=== PATIENT | male | born 1995 | race Caucasian/White ===

== ENCOUNTER 2022-11-21 18:56 | Emergency (ER) | payer BC ==
[2022-11-21 19:34] LABS: ESTIMATED GFR 120 mL/min (>60)
== END 2022-11-21 20:11 | disposition home or self-care (01) ==
LOC: FB.ED 18:56
DX: R07.81 Pleurodynia (principal); K64.4 Residual hemorrhoidal skin tags
CPT/HCPCS: 36415; 71045; 80053; 84484; 85025; 93005; 93010; 99283; 99285